=== PATIENT | male | born 1995 | race Caucasian/White ===

== ENCOUNTER 2019-11-08 15:21 | Emergency (ER) | payer BC, SELFPAY ==
[2019-11-08 15:23] VITALS: BP 149/81; PULSE 95; RESP 20; TEMP 36.7; O2SAT 98
--- NOTE | 2019-11-08 15:32 | PC.NURSE ---
Addition to triage note: Patient reports that he has bipolar disorder, ADHD, and asberger's. He reports that he is homeless, has no money, and has lost his job recently. He reports feeling very hostile towards others in general. He states It's not who I normally am, I feel like I'm going crazy. He does report that he has feelings of suicidal ideation that are not present at this time but occur more when he comes down from his manic phase. He report's that he was doing well with his bipolar until approximately a year and half ago when he reports having his medications changed around that time, and he has been off of his medication since that time. 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 Marijuana is his only reported drug usage at this time. He presents very restless at this time and is vocally very loud. He does not threaten staff members and is not acting violent towards staff member at this time. He does state that he is having visual and auditory hallucinations but is unable to articulate further about these at this time. He denies having any delusional or paranoid views but when he speaks about losing his job he tells me in a quite voice I got fired because she wanted me to have sex with her and I wouldn't so she got an order of protection against me to keep me from working. At this moment he does deny suicidal ideation, states that this is only when he is not in manic phase. He admits to violence towards others and thoughts of violence towards others if they even look at me weird . Patient informed of plan of care to clear medically and then to have crisis come to evaluate him. Patient agrees to this plan of care at this time.
[2019-11-08 16:03] LABS: Basophils Absolute Auto 0.1 K/mm3 (0.0-0.1); Basophils Percent Auto 0.5 % (0.2-1.2); Eosinophils Absolute Auto 0.2 K/mm3 (0-0.3); Eosinophils Percent Auto 2.5 % (0-4.4); Hematocrit 48.6 % (42.0-52.0); Hemoglobin 16.9 g/dL (14.0-18.0); Immature Granulocyte Absolute 0.03 K/mm3 (0.00-0.031); Immature Granulocyte Percent A 0.3 % (0-0.5); Lymphocytes Absolute Auto 2.14 K/mm3 (0.9-3.2); Lymphocytes Percent Auto 22.4 % (18.3-44.2); Mean Corpuscular HGB Conc 34.8 g/dl (32-36); Mean Corpuscular Hemoglobin 31.3 pg (26-34); Mean Platelet Volume 10.1 fl (7.4-10.4); Monocytes Absolute Auto 0.4 K/mm3 (0.1-0.6); Monocytes Percent Auto 4.3 % (2.6-8.5); Neutrophils Absolute Auto 6.7 K/mm3 (1.3-6.7); Platelet Count Result 257 k/mm3 (150-375); Red Cell Distribution Width 12.4 % (11.5-14.5); White Blood Count 9.5 K/mm3 (4.5-10.0)
[2019-11-08 16:22] LABS: Ethanol < 10 mg/dL (<10)
[2019-11-08 16:24] LABS: Alanine Aminotransferase 25 U/L (4-50); Alkaline Phosphatase 64 U/L (38-126); Anion Gap 10 mmol/L (8-16); Aspartate Amino Transferase 25 U/L (17-59); Bilirubin,Total 0.5 mg/dL (0.2-1.3); Calcium 9.9 mg/dL (8.4-10.2); Carbon Dioxide 28 mmol/L (22-30); Chloride 103 mmol/L (98-107); Glucose 116 mg/dL (75-110); Potassium 4.2 mmol/L (3.4-5.0); Sodium 141 mmol/L (137-145)
[2019-11-08 16:31] LABS: Blood Urea Nitrogen 21 mg/dL (9-20); Estimated CRCL calculation 105 ml/min; Estimated Glomerular Filt Rate > 60
--- NOTE | 2019-11-08 16:35 | ED.GENADULT ---
HPI - General Adult General Chief complaint: Psychiatric Symptoms Stated complaint: SUICIDAL AND HOMICIDAL Time Seen by Provider: 11/08/19 16:10 Source: patient History of Present Illness HPI narrative: Patient is a 24 y/o male complaining of suicidal and homicidal ideation for last 3 weeks. He states that he has bipolar disorder and he lost his job recently. He states that job loss is aggravating his symptoms. He is considering choking other people and jumping off a bridge. He is hearing voices, which tells him to choke people. Related Data Home Medications Medication Instructions Recorded Confirmed No Home Medications 11/08/19 11/08/19 Allergies Allergy/AdvReac Type Severity Reaction Status Date / Time No Known Allergies Allergy Verified 11/08/19 15:45 Review of Systems Constitutional: Constitutional: Denies chills, Denies fever(s), Denies headache(s) and Denies weakness Eyes: Eyes: Denies blurry vision ENT: Denies headache(s) and Denies neck pain Cardiovascular: Cardiovascular: Denies chest pain and Denies dyspnea Respiratory: Respiratory: Denies cough and Denies dyspnea Gastrointestinal: Gastrointestinal: Denies abdominal pain, Denies diarrhea, Denies nausea and Denies vomiting Genitourinary: Genitourinary: Denies hematuria and Denies dysuria Musculoskeletal: Musculoskeletal: Denies back pain and Denies neck pain Neurologic: Denies headache(s) and Denies weakness Psychiatric: Psychiatric: Reports visual hallucinations, Reports homicidal ideation and Reports suicidal ideation [facility] Social History Social History Gender identity (if verbalized by the patient): Male Exam Const: General: no acute distress and well developed Orientation/consciousness: oriented to person, oriented to place, oriented to time and patient oriented x3 HENMT: Head: normocephalic Ears: external ears normal General nose exam: Normal external nose present Eyes: General: appearance normal, both eyes and all related structures Conjunctivae: conjunctivae normal Neck: Neck: normal visual inspection and full ROM Chest: Chest palpation & inspection: normal inspection of the chest and no tenderness Resp: Effort & Inspection: normal respiratory effort Auscultation: clear to auscultation bilaterally Cardio: Rate: regular rate Rhythm: regular rhythm GI: GI Palp: No abdominal tenderness and Yes Soft to palpation Skin: General skin exam: normal color and turgor normal Neuro: General: oriented to person, oriented to place, oriented to time and patient oriented x3 Cognition (Neuro): normal cognition Extrem: General: normal to inspection, full ROM and no pedal edema Psych: Appearance: grossly normal Mental Status: mental status grossly normal Affect: normal affect Thought content: Yes Suicidality present, Yes Homicidality present and Yes Hallucination(s) present Course Reevaluation(s) Reevaluation #1: Patient is medically clear for psych evaluation. Date: 11/08/19 Time: 19:50 Consultations Consultation #1: Discussed with Dr. Tito Avalos (psychiatry at [facility]), who accepts patient for evaluation in ED. Date: 11/08/19 Time: 20:20 Consultation #2: Discussed with Dr. Whitman (EDP at [facility]), who agrees to accept patient for transfer. Date: 11/08/19 Time: 20:45 Vital Signs Vital signs: Vital Signs Temperature 36.7 C 11/08/19 15:23 Pulse Rate 95 11/08/19 15:23 Respiratory Rate 11/08/19 15:23 Blood Pressure 149/81 H 11/08/19 15:23 Pulse Oximetry 98 11/08/19 15:23 Temperature 36.4 C 11/08/19 23:16 Pulse Rate 81 11/08/19 23:16 Respiratory Rate 18 11/08/19 23:16 Blood Pressure 126/86 11/08/19 23:16 Pulse Oximetry 99 11/08/19 23:16 Medical Decision Making Vital Signs Vital Signs: Vital Signs Temperature 36.7 C 11/08/19 15:23 Pulse Rate 95 11/08/19 15:23 Respiratory Rate 11/08/19 15:23 Blood Pressure 149/81 H 10/24
[2019-11-08 17:16] LABS: Add Urine Microscopic? YES; Appearance Urine Clear (Clear); Bilirubin Urine Negative (Negative); Blood Urine Negative (Negative); Color Urine Yellow (Yellow); Glucose Urine UA Negative (Negative); Ketones Urine Negative (Negative); Leukocyte Esterase Ur Negative LEU/UL (Negative); Mucus Urine Moderate /lpf; Nitrate Urine Negative (Negative); Protein Urine 3+ mg/dL (Negative); RBC Urine 0-2 /hpf (0-2); Specific Grav Ur 1.029 (1.001-1.035); WBC Urine 0-3 /hpf
[2019-11-08 17:33] LABS: Amphetamine Screen Urine Negative (Negative); Barbiturate Screen Urine Negative (Negative); Benzodiazepines Screen Urine Negative (Negative); Cannabinoid Screen Urine Positive (Negative); Cocaine Screen Urine Negative (Negative); Methadone Screen Urine Negative (Negative); Opiate Screen Urine Negative (Negative); Phencyclidine Screen Urine Negative (Negative)
[2019-11-08] MEDS: NICOTINE (*PBKC) 14 MG PATCH 1 PATCH TRANSDERM (18:23)
--- NOTE | 2019-11-08 19:25 | PC.NURSE ---
report received at this time. pt resting on stretcher awake and alert. pt denies any needs/concerns. sitter remains at bedside. awaiting CRISIS
--- NOTE | 2019-11-08 20:06 | PC.NURSE ---
this RN spoke to [facility] triage nurse at this time. states they are trying to find placement for pt and they are going to discuss it with their dr. awaiting call back. pt updated on poc at this time. provided with blanket. sitter remains at bedside.
[2019-11-08 20:10] VITALS: BP 127/77; PULSE 58; RESP 18; TEMP 36.5; O2SAT 97
--- NOTE | 2019-11-08 20:53 | PC.NURSE ---
called [facility] to transport patient.. ETA [id number]
--- NOTE | 2019-11-08 21:01 | PC.NURSE ---
called [facility] to transport patient. [facility] declined.
--- NOTE | 2019-11-08 22:31 | PC.NURSE ---
called [facility] for ETA update. ETA [id number]
--- NOTE | 2019-11-08 22:33 | PC.NURSE ---
called [facility] to request transport. [facility] declined
--- NOTE | 2019-11-08 22:41 | PC.NURSE ---
called [facility] to transport patient. ETA [id number].
[2019-11-08 23:16] VITALS: BP 126/86; PULSE 81; RESP 18; TEMP 36.4; O2SAT 99
== END 2019-11-08 23:30 ==
PROVIDERS: Emergency Provider Emergency Medicine
DX: F31.9 Bipolar disorder, unspecified (principal); R45.851 Suicidal ideations
CPT/HCPCS: 36415; 80053; 80307; 81001; 84443; 85025; 99285; A9270

== ENCOUNTER 2020-05-31 10:20 | Emergency (ER) | payer BC, SELFPAY ==
--- NOTE | ~2020-05-31 | XR_ITS ---
EXAMINATION: XR chest 1V portable DATE: 05/31/2020 10:39 INDICATION: Lethargy. Drug overdose. TECHNIQUE: A single frontal view of the chest was obtained. COMPARISON: None. FINDINGS: The chest demonstrates clear lungs without pneumonia, pleural effusion, or pneumothorax. Th e heart size is normal. IMPRESSION: 1. No acute cardiopulmonary disease. Reviewed, dictated and finalized at location A.
[2020-05-31 10:20] VITALS: BP 104/62; PULSE 70; RESP 15; TEMP 36.9; O2SAT 100
--- NOTE | 2020-05-31 10:27 | ECG_ITS ---
Measurements Intervals [place] Rate: 70 P: 31 FL: 150 QRS: 81 QRSD: 98 T: -3 QT: 416 QTc: 450 Interpretive Statements SINUS RHYTHM BORDERLINE ST-T WAVE ABNORMALITY- INFERIOR LEADS BORDERLINE ECG Electronically Signed On 05-31-2020 11:45:34 CDT by Jn Patrick D.O.
[2020-05-31 10:54] LABS: Base Excess ABG -5.7 mmol/L (0-2); HCO3 ABG 19.1 mmol/L (23-29); Oxygen Content ABG 22.1 %vol (16.0-22.0); Oxygen Saturation ABG 96.9 % (95-97); Oxyhemoglobin 93.2 % (94-100); PO2 ABG 91.4 mmHg (80-90); Total Hemoglobin 16.8 g/dL; pH ABG 7.34 (7.35-7.45)
[2020-05-31 10:56] VITALS: RESP 15
[2020-05-31 10:56] LABS: Device ROOM AIR; Modified Allen's Test Pass; Site Drawn RIGHT RADIAL
[2020-05-31 11:01] LABS: Basophils Absolute Auto 0.07 K/mm3 (0.00-0.10); Basophils Percent Auto 0.9 % (0.0-1.0); Eosinophils Absolute Auto 0.27 K/mm3 (0.02-0.50); Eosinophils Percent Auto 3.4 % (1.0-6.0); Hematocrit 50.9 % (40.0-54.0); Hemoglobin 16.9 g/dL (14.0-18.0); Immature Granulocyte Absolute 0.04 K/mm3 (0.00-0.00); Immature Granulocyte Percent A 0.5 % (0.0-0.0); Lymphocytes Absolute Auto 2.28 K/mm3 (1.10-4.50); Lymphocytes Percent Auto 28.3 % (18.0-42.0); Mean Corpuscular HGB Conc 33.2 g/dL (32.0-36.0); Mean Corpuscular Hemoglobin 30.3 pg (27.0-31.0); Mean Corpuscular Volume 91.2 fL (78.0-102.0); Mean Platelet Volume 10.5 fl (8.7-11.0); Monocytes Absolute Auto 0.55 K/mm3 (0.10-0.90); Monocytes Percent Auto 6.8 % (2.0-11.0); Neutrophils Absolute Auto 4.8 K/mm3 (1.7-7.2); Neutrophils Percent Auto 60.1 % (50.0-70.0); Platelet Count Result 230 K/mm3 (150-420); Red Blood Count 5.58 M/mm3 (4.70-6.10); Red Cell Distribution Width 12.2 % (11.6-14.4); White Blood Count 8.1 K/mm3 (4.8-10.8)
[2020-05-31 11:11] LABS: INR 1.1; Partial Thromboplastin Time 24.1 SEC (23.90-30.70)
[2020-05-31 11:14] LABS: Lactic Acid Reflex 1.5 mmol/L (0.4-2.0)
[2020-05-31 11:23] LABS: Alanine Aminotransferase 37 U/L (16-63); Alkaline Phosphatase 64 U/L (46-116); Ammonia 15 umol/L (11-32); Anion Gap 8 mmol/L (8-16); Aspartate Amino Transferase 43 U/L (15-37); Carbon Dioxide 28 mmol/L (21-32); Chloride 100 mmol/L (98-108); Estimated Glomerular Filt Rate > 60; Ethanol 4 mg/dL (0-6); Phosphorus 4.1 mg/dL (2.6-4.7); Potassium 3.3 mmol/L (3.5-5.1); Sodium 136 mmol/L (136-145); Total Protein 8.6 g/dL (6.4-8.2)
[2020-05-31 11:35] LABS: Albumin Level 4.4 g/dL (3.4-5.0); Blood Urea Nitrogen 20 mg/dL (7-18); Magnesium 2.2 mg/dL (1.8-2.4); Osmolality Calculated 285 mOsm/kg (285-295); Salicylate < 0.2 mg/dL (2.8-20.0)
[2020-05-31 11:36] LABS: Calcium 9.4 mg/dL (8.5-10.1); Glucose 109 mg/dL (70-99)
[2020-05-31 11:38] LABS: Acetaminophen < 2 ug/mL (10-30)
[2020-05-31 11:43] LABS: Creatine Kinase 1599 U/L (39-308)
--- NOTE | 2020-05-31 12:57 | ED.OVERDOSE ---
HPI - Overdose General Chief Complaint: Overdose Stated Complaint: ambulance Source: patient and EMS Limitations: altered mental status History of Present Illness HPI Narrative: This is a 25-year-old gentleman that presents via EMS to emergency department after he attempted to overdose on Geodon patient with a history of schizophrenia and numerous previous attempts of suicide via overdose apparently at about 4 in the morning took no known quantity his Geodon and attempts to to commit suicide. Patient currently is alert but lethargic and immediate to having numerous suicidal attempts in the. Patient stable is vitals are stable is resting comfortably currently sleeping is on the monitor with blood 104/62 with a respiratory rate 15 and O2 sats of 100% on room air. The patient denies having any shortness of no fever chills no chest no abdominal pain no diarrhea constipation. complaint: intentional overdose Onset (ago): hour(s) Time: 04:00 Intent: suicide attempt Related Data Home Medications Medication Instructions Recorded Confirmed ziprasidone HCl 80 mg PO HS 05/31/20 05/31/20 Allergies Allergy/AdvReac Type Severity Reaction Status Date / Time No Known Allergies Allergy Verified 11/08/19 15:45 Review of Systems Review of Systems: All systems reviewed & are unremarkable except as noted in HPI and below PMFSH Past Medical History Medical History Overdose Schizophrenia Social History Social History Substance use type: marijuana and methamphetamine Gender identity (if verbalized by the patient): Male Exam Const: General: confusion HENMT: Head: normal to inspection Eyes: Other: pupils equal bilaterally but pinpoint, otherwise unable to assess extraocular eye movements. Neck: Neck: no lymphadenopathy and no meningeal signs Chest: Chest palpation & inspection: normal inspection of the chest Resp: Effort & Inspection: normal respiratory effort Auscultation: clear to auscultation bilaterally Cardio: Rate: regular rate Rhythm: regular rhythm GI: GI Palp: Yes Soft to palpation Auscultation: normal bowel sounds Urinary Catheter: Urinary Catheter: patent and draining Back/Spine/Pelvis: Back: no CVA tenderness Skin: General skin exam: normal color Rashes: no rashes Neuro: General: moves all extremities, no meningeal signs and no focal motor deficits Extrem: General: normal to inspection and no pedal edema Psych: Affect: normal affect Attitude: cooperative Thought content: Yes Suicidality present Course Course Emergency Course: Patient currently sleeping and resting comfortably did answer questions but was lethargic and reviewed his blood work and x-rays with the patient along with his EKG which showed no prolonged QT interval on EKG, abnormal was his CK was elevated at 1599, and his potassium levels were 3.3 otherwise the rest is lab profile was within normal limits did have ABGs performed which showed that he has a metabolic acidosis. Did call poison control and given the fact that this overdose with Geodon occurred around 4 in the morning which is about 6 hours prior to his arrival to our emergency room there was no indication for activated charcoal. The patient is receiving IV fluids and and he is being monitored for his vitals. Vital Signs Vital signs: Vital Signs Temperature 36.9 C 05/31/20 10:20 Pulse Rate 70 05/31/20 10:20 Respiratory Rate 15 05/31/20 10:20 Blood Pressure 104/62 05/31/20 10:20 Pulse Oximetry 100 05/31/20 10:20 Temperature 36.7 C 05/31/20 17:42 Pulse Rate 84 05/31/20 17:42 Respiratory Rate 16 05/31/20 17:42 Blood Pressure 114/70 05/31/20 17:42 Pulse Oximetry 97 05/31/20 17:42 MDM - Overdose Lab Data Result diagrams: 05/31/20 10:52 05/31/20 10:52 Labs: Lab Results 05/31/20
[2020-05-31] MEDS: SODIUM CHLORIDE 0.9% IV 1,000 ML 999 ML IV CONT (13:08)
--- NOTE | 2020-05-31 13:08 | PC.NURSE ---
1ST LITER NS INFUSED AT THIS TIME
[2020-05-31 13:30] VITALS: BP 118/66; PULSE 93; RESP 15; O2SAT 95
--- NOTE | 2020-05-31 13:32 | PC.NURSE ---
SITTER REMAINS AT BEDSIDE - PT IS CALM AND COOPERATIVE - CONTINUE TO AWAIT URINE SAMPLE - SUICIDE PRECAUTIONS CHARTED PER SITTER POLICY
--- NOTE | 2020-05-31 13:48 | PC.NURSE ---
POISON CONTROL CALLS BACK FOR RESULTS - ASKS FOR ANOTHER CK IN 6 HOURS
--- NOTE | 2020-05-31 14:47 | PC.NURSE ---
PT BACK IN ROOM AFTER PROVIDING URINE SAMPLE - PT STATES HE IS NOT SUICIDAL AND DOESN'T THINK HE NEEDS TO GO TO THE MENTAL HOS[facility] - PT REMAINS CALM - WILL CALL [facility] FOR FOLLOW UP
[2020-05-31 14:56] LABS: Add Urine Microscopic? NO; Appearance Urine Clear (Clear); Bilirubin Urine Negative (Negative); Blood Urine Negative (Negative); Color Urine Yellow (Yellow); Glucose Urine UA Negative (Negative); Ketones Urine Negative (Negative); Leukocyte Esterase Ur Negative LEU/UL (Negative); Nitrate Urine Negative (Negative); Protein Urine Negative (Negative); Specific Grav Ur <= 1.005 (1.010-1.020); Urobilinogen Urine 0.2 mg/dL (0.2-1.0); pH Urine 5.5 (5.0-8.0)
[2020-05-31 14:58] LABS: Amphetamine Screen Urine Positive (Negative); Barbiturate Screen Urine Negative (Negative); Benzodiazepines Screen Urine Negative (Negative); Cannabinoid Screen Urine Positive (Negative); Cocaine Screen Urine Negative (Negative); Methadone Screen Urine Negative (Negative); Opiate Screen Urine Negative (Negative); Phencyclidine Screen Urine Negative (Negative)
--- NOTE | 2020-05-31 15:01 | PC.NURSE ---
PT BACK TO SLEEP, S - [facility] OVEN ROASTER ENROUTE TO INTERVIEW PATIENT
[2020-05-31 15:04] VITALS: BP 109/80; PULSE 77; RESP 14; O2SAT 99
[2020-05-31 15:39] LABS: Creatine Kinase 1587 U/L (39-308)
--- NOTE | 2020-05-31 15:52 | PC.NURSE ---
[facility] COMMERCIAL COLLECTIONS SPECIALIST WITH PATIENT
--- NOTE | 2020-05-31 16:55 | PC.NURSE ---
[facility] HAS DEEMED PATIENT NOT SUICIDAL. PER ERP, PT STILL NEEDS TO BE TRANSFERRED TO PSYCH FACILITY D/T PREVIOUS IDEATION. PT IS ADAMANT THAT HE DID NOT EVEN TAKE THE PILLS THAT HE DESCRIBED EARLIER - STATES THAT RX WAS FILLED IN FEBRUARY AND HAS NOT BEEN ON MEDICATION SINCE - PT REMAINS CALM AND COOPERATIVE AND STATES HE WILL STAY TO BE TRANSFERRED REQUESTED BY ERP - PT SIGNS VOLUNTARY ADMISSION
[2020-05-31 17:03] VITALS: BP 138/67; PULSE 103; O2SAT 97
[2020-05-31 17:08] LABS: Creatine Kinase 1278 U/L (39-308)
[2020-05-31 17:42] VITALS: BP 114/70; PULSE 84; RESP 16; TEMP 36.7; O2SAT 97
--- NOTE | 2020-05-31 17:45 | PC.NURSE ---
here @ 1730 to 203b for er hold. patient is alert to x'4 but drowsy at this time. voices no c/o. at times speech is clear and other times it is slurred. denies thoughts to harm self, just claims he wants to sleep.
--- NOTE | 2020-05-31 17:55 | PC.NURSE ---
CHART FAXED TO [facility] [phone]
--- NOTE | 2020-05-31 19:23 | PC.NURSE ---
Poison control called for update on patient. Patient resting, VS stable. Pain rated at 0 on 0to 10.
--- NOTE | 2020-05-31 19:29 | PC.NURSE ---
Pt remains in a hold bed on the 3rd floor, awaiting placement at [facility] facility.
--- NOTE | 2020-05-31 20:43 | PC.NURSE ---
Spoke with Shefali at [facility]. Background information provided on patient. Requires negative rapid COVID test before admission. Order obtained , specimen collected and delivered to lab. [facility] was also contacting [facility] to obtain information. Patient resting in room. Cooperative with care.
[2020-05-31 21:06] LABS: SARS-CoV-2 Ag Negative (Negative)
--- NOTE | 2020-05-31 21:22 | PC.NURSE ---
Contacted by Shefali at [facility]. Requested another CK level be drawn. notified. Patient resting.
--- NOTE | 2020-05-31 21:50 | PC.NURSE ---
The voluntary admission form had been misplaced. A new [facility] Application for Voluntary Admission was filled out and signed by patient, myself, and Nisha ACE. Patient is calm and cooperative while on the floor. [facility] has tentatively accepted patient pending normalization of his CK
[2020-05-31 21:53] LABS: Creatine Kinase 964 U/L (39-308)
[2020-06-01 00:02] VITALS: BP 125/69; PULSE 56; RESP 14; TEMP 36.9; O2SAT 97
--- NOTE | 2020-06-01 06:59 | P.PNCROSS_ITS ---
Event Note Event Note Event Note: patient has been stable throughout the night with some no current complaints, my [facility] has accepted the patient for inpatient psychiatric evaluation on the premise that his CK levels are in normal range, and awaiting for this morning's CK results.
[2020-06-01 07:03] LABS: Creatine Kinase 768 U/L (39-308)
[2020-06-01 07:34] VITALS: BP 152/75; PULSE 96; RESP 18; TEMP 37.4
--- NOTE | 2020-06-01 08:16 | PC.NURSE ---
Pt lying in bed with side rails up x 2. A/O x 3, call light in reach. Refuses breakfast at this time. RN offered to get pt something else but he refused.
--- NOTE | 2020-06-01 09:38 | PC.NURSE ---
Pt up in room. Denies any intention to harm self or others. Asked for and was given paper and pencil.
--- NOTE | 2020-06-01 10:21 | PC.NURSE ---
Pt complaint of tongue swelling and mouth pain. Pt becoming anxious and agitated. RN assured him that Dr. Granger will be here to see him. RN brought pt a soda which he asked for. Dr. Granger from ER is on the floor doing rounds and will see pt.
[2020-06-01] MEDS: predniSONE 20 MG TABLET 40 MG PO (12:04)
[2020-06-01] MEDS: diphenhydrAMINE HCl CAP 25 MG CAPSULE PO (12:04)
[2020-06-01 12:22] LABS: Anion Gap 9 mmol/L (8-16); Blood Urea Nitrogen 20 mg/dL (7-18); Calcium 9.1 mg/dL (8.5-10.1); Carbon Dioxide 26 mmol/L (21-32); Chloride 102 mmol/L (98-108); Estimated Glomerular Filt Rate > 60; Glucose 114 mg/dL (70-99); Osmolality Calculated 287 mOsm/kg (285-295); Potassium 3.7 mmol/L (3.5-5.1); Sodium 137 mmol/L (136-145)
[2020-06-01 12:25] LABS: Creatine Kinase 768 U/L (39-308)
--- NOTE | 2020-06-01 12:43 | PC.NURSE ---
Pt ate 100% of lunch. Pt has had 2 sodas and 500ml of water. Urinating without difficulty, denies pain. Continues to complain of swollen tongue and facial pain. Pt took prednisone and Benadryl at 1130am. Top side rails up call light in reach.
[2020-06-01] MEDS: SODIUM CHLORIDE 0.9% IV 1,000 ML 200 ML IV CONT ×3 (13:49→23:21)
[2020-06-01 16:07] VITALS: BP 124/78; PULSE 76; RESP 18; TEMP 37.1; O2SAT 97
--- NOTE | 2020-06-01 16:10 | PC.NURSE ---
sitting up in bed. up ad urvashi in room. denies any suicidal thoughts. gait is steady. denies any sob. talks plainly and in full sentences. denies any tongue swelling, trouble swallowing, or sob. ivf cont. aniket stuart
--- NOTE | 2020-06-01 18:22 | PC.NURSE ---
talks on phone. voices no c/o of tongue swelling. talks without difficulty. ivf cont.
[2020-06-01 18:43] LABS: Anion Gap 10 mmol/L (8-16); Blood Urea Nitrogen 17 mg/dL (7-18); Carbon Dioxide 27 mmol/L (21-32); Chloride 102 mmol/L (98-108); Creatine Kinase 716 U/L (39-308); Estimated Glomerular Filt Rate > 60; Glucose 160 mg/dL (70-99); Osmolality Calculated 292 mOsm/kg (285-295); Potassium 4.2 mmol/L (3.5-5.1); Sodium 139 mmol/L (136-145)
[2020-06-02] MEDS: SODIUM CHLORIDE 0.9% IV 1,000 ML 200 ML IV CONT ×4 (04:25→21:36)
--- NOTE | 2020-06-02 05:13 | PC.NURSE ---
Patient alert and oriented x 3, no c/o pain or discomfort, bp- 1236/67, p - 78, R - 20, T - 98.4, SPO2 - 92, IV fluids per orders.
[2020-06-02 06:05] LABS: Alanine Aminotransferase 34 U/L (16-63); Albumin Level 3.5 g/dL (3.4-5.0); Alkaline Phosphatase 55 U/L (46-116); Anion Gap 10 mmol/L (8-16); Aspartate Amino Transferase 25 U/L (15-37); Bilirubin,Total 0.4 mg/dL (0.00-1.00); Blood Urea Nitrogen 16 mg/dL (7-18); Calcium 8.7 mg/dL (8.5-10.1); Carbon Dioxide 24 mmol/L (21-32); Chloride 105 mmol/L (98-108); Creatine Kinase 449 U/L (39-308); Estimated Glomerular Filt Rate > 60; Glucose 99 mg/dL (70-99); Osmolality Calculated 289 mOsm/kg (285-295); Potassium 3.5 mmol/L (3.5-5.1); Sodium 139 mmol/L (136-145); Total Protein 7.3 g/dL (6.4-8.2)
[2020-06-02 07:30] VITALS: BP 133/82; PULSE 86; RESP 18; TEMP 37.2; O2SAT 96
--- NOTE | 2020-06-02 08:00 | PC.NURSE ---
Patient stated to nurse You know I am in here cause I took alot of medication right? I took it cause I wanted to . Patient denies any plan at present.
[2020-06-02 14:57] LABS: Creatine Kinase 397 U/L (39-308)
--- NOTE | 2020-06-02 16:05 | PC.NURSE ---
[facility] contacted about admission for patient, reports that all their beds are full at this time.
--- NOTE | 2020-06-02 16:20 | PC.NURSE ---
MD Richter notified that [facility] does not have a bed availiable at this time. [facility] after hours contacted about placement for patient, waiting for call back from [facility] worker.
[2020-06-02] MEDS: NICOTINE (*PBKC) 21 MG PATCH 1 PATCH TRANSDERM (16:43)
[2020-06-02 16:45] VITALS: BP 132/93; PULSE 77; RESP 18; TEMP 37.3; O2SAT 95
--- NOTE | 2020-06-02 17:45 | PC.NURSE ---
Patient information and chart faxed to [facility] in [place], [place].
--- NOTE | 2020-06-02 19:55 | PC.NURSE ---
Chart, labs, facesheet and doctor notes faxed to [facility], .
--- NOTE | 2020-06-02 20:35 | PC.NURSE ---
Patient watching tv. IVF infusing to site in RFA without difficulty.Denies pain/complaints/needs @ this time. Patient denies having suicidal thoughts @ this time. Patient watching [employer] on his phone. Call light in reach.
--- NOTE | 2020-06-02 21:00 | PC.NURSE ---
Received call from Howard @ [facility] saying [facility] in [place] wants labs and EKG repeated before they would take patient. Dr Richter notified and will order the requested tests.
--- NOTE | 2020-06-02 21:16 | ECG_ITS ---
Measurements Intervals [place] Rate: 60 P: 21 [place]: 162 QRS: 29 QRSD: 104 T: 24 QT: 384 QTc: 385 Interpretive Statements SINUS RHYTHM WITH SINUS ARRHYTHMIA EARLY PRECORDIAL R/S TRANSITION BORDERLINE ECG Electronically Signed On 06-03-2020 8:05:55 CDT by Jn Patrick D.O.
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
[2020-06-02 21:41] LABS: Basophils Absolute Auto 0.06 K/mm3 (0.00-0.10); Basophils Percent Auto 0.9 % (0.0-1.0); Eosinophils Absolute Auto 0.21 K/mm3 (0.02-0.50); Eosinophils Percent Auto 3.2 % (1.0-6.0); Hematocrit 41.8 % (40.0-54.0); Immature Granulocyte Absolute 0.01 K/mm3 (0.00-0.00); Immature Granulocyte Percent A 0.2 % (0.0-0.0); Lymphocytes Absolute Auto 3.02 K/mm3 (1.10-4.50); Lymphocytes Percent Auto 45.8 % (18.0-42.0); Mean Corpuscular HGB Conc 33.5 g/dL (32.0-36.0); Mean Corpuscular Hemoglobin 30.4 pg (27.0-31.0); Mean Corpuscular Volume 90.9 fL (78.0-102.0); Mean Platelet Volume 10.7 fl (8.7-11.0); Monocytes Percent Auto 7.6 % (2.0-11.0); Neutrophils Absolute Auto 2.8 K/mm3 (1.7-7.2); Neutrophils Percent Auto 42.3 % (50.0-70.0); Platelet Count Result 210 K/mm3 (150-420); Red Cell Distribution Width 11.9 % (11.6-14.4); White Blood Count 6.6 K/mm3 (4.8-10.8)
--- NOTE | 2020-06-02 22:00 | PC.NURSE ---
Urine specimen obtained.
[2020-06-02 22:03] LABS: Alanine Aminotransferase 41 U/L (16-63); Albumin Level 3.5 g/dL (3.4-5.0); Alkaline Phosphatase 61 U/L (46-116); Anion Gap 8 mmol/L (8-16); Aspartate Amino Transferase 24 U/L (15-37); Bilirubin,Total 0.3 mg/dL (0.00-1.00); Blood Urea Nitrogen 13 mg/dL (7-18); Calcium 8.6 mg/dL (8.5-10.1); Carbon Dioxide 27 mmol/L (21-32); Chloride 103 mmol/L (98-108); Estimated Glomerular Filt Rate > 60; Glucose 111 mg/dL (70-99); Osmolality Calculated 287 mOsm/kg (285-295); Potassium 3.5 mmol/L (3.5-5.1); Sodium 138 mmol/L (136-145); Thyroid Stimulating Hormone 1.65 uIU/mL (0.36-3.74); Total Protein 7.2 g/dL (6.4-8.2)
[2020-06-02 23:20] LABS: Amphetamine Screen Urine Negative (Negative); Barbiturate Screen Urine Negative (Negative); Benzodiazepines Screen Urine Negative (Negative); Cannabinoid Screen Urine Positive (Negative); Cocaine Screen Urine Negative (Negative); Methadone Screen Urine Negative (Negative); Opiate Screen Urine Negative (Negative); Phencyclidine Screen Urine Negative (Negative)
[2020-06-02 23:23] LABS: Add Urine Microscopic? NO; Appearance Urine Clear (Clear); Bilirubin Urine Negative (Negative); Blood Urine Negative (Negative); Color Urine Yellow (Yellow); Glucose Urine UA Negative (Negative); Ketones Urine Negative (Negative); Leukocyte Esterase Ur Negative (Negative); Nitrate Urine Negative (Negative); Protein Urine Negative (Negative); Urobilinogen Urine 0.2 mg/dL (0.2-1.0)
--- NOTE | 2020-06-02 23:30 | PC.NURSE ---
Patient awakened easily for VS to be taken. IVF infusing to site in RFA without difficulty. Denies pain/complaints/needs or suicidal thoughts @ this time. No distress noted. Call light in reach.
[2020-06-02 23:43] LABS: SARS-CoV-2 Ag Negative (Negative)
[2020-06-03] VITALS: BP 144/79; PULSE 62; RESP 18; TEMP 36.8; O2SAT 95
--- NOTE | 2020-06-03 01:15 | PC.NURSE ---
Patient appears to be sleeping by the rise and fall of his chest. IVF infusing without difficulty to site in RFA. No distress noted. Call light in reach.
[2020-06-03] MEDS: SODIUM CHLORIDE 0.9% IV 1,000 ML 200 ML IV CONT (02:34)
--- NOTE | 2020-06-03 02:45 | PC.NURSE ---
Patient appears to be sleeping by the rise and fall of his chest. IVF infusing to site in RFA without difficulty. No distress noted. Call light in reach.
--- NOTE | 2020-06-03 07:12 | ED.PSYCH ---
HPI - Psych General Source: patient and EMS Mode of arrival: ambulatory Limitations: no limitations History of Present Illness HPI Narrative: Patient continues to wait for bed placement in locked unit, due to history of suicide attempt. complaint: suicidal ideation Associated psychiatric symptoms: depression Related Data Home Medications Medication Instructions Recorded Confirmed ziprasidone HCl 80 mg PO HS 05/31/20 05/31/20 Allergies Allergy/AdvReac Type Severity Reaction Status Date / Time No Known Allergies Allergy Verified 11/08/19 15:45 Review of Systems Constitutional: Constitutional: Reports no additional constitutional complaints Eyes: Eyes: Reports no additional eye complaints ENT: Reports system reviewed and no additional complaints, except as documented Cardiovascular: Cardiovascular: Reports no additional cardiovascular complaints Respiratory: Respiratory: Reports no additional respiratory complaints Gastrointestinal: Gastrointestinal: Reports no additional gastrointestinal complaints Genitourinary: Genitourinary: Reports no additional male genitourinary complaints Musculoskeletal: Musculoskeletal: Reports no additional musculoskeletal complaints Integumentary/Breasts: Skin/Breast: Reports system reviewed and no additional complaints, except as docu Neurologic: Reports system reviewed and no additional complaints, except as documented Psychiatric: Psychiatric: Reports no additional psychiatric complaints Endocrine: Endocrine: Reports no additional endocrine complaints Hematologic/Lymphatic: Hematologic/Lymphatic: Reports no additional hematologic/lymphatic complaints PMFSH Past Medical History Medical History Overdose Schizophrenia Family History Family History Mother Family history non-contributory Social History Social History Substance use type: marijuana and methamphetamine Gender identity (if verbalized by the patient): Male Exam Narrative: Exam Narrative: He freely admits to suicide attempt. He states he is feeling better this am, and swelling of his tongue has resolved. Const: General: alert Orientation/consciousness: patient oriented x3 HENMT: Head: normal to inspection Other: mouth and tongue appear within normal limits Eyes: Conjunctivae: conjunctivae normal Neck: Neck: normal visual inspection Chest: Chest palpation & inspection: normal inspection of the chest Resp: Effort & Inspection: normal respiratory effort Cardio: Rate: regular rate GI: Other: negative Skin: General skin exam: normal color Neuro: General: patient oriented x3 Extrem: General: normal to inspection Psych: Appearance: disheveled Attitude: cooperative Thought content: Yes Suicidality present and Yes Depersonalization present Course Course Emergency Course: Hospital course is unchanged. We continue to wait for bed placement. Vital Signs Vital signs: Vital Signs Temperature 36.9 C 05/31/20 10:20 Pulse Rate 70 05/31/20 10:20 Respiratory Rate 15 05/31/20 10:20 Blood Pressure 104/62 05/31/20 10:20 Pulse Oximetry 100 05/31/20 10:20 Temperature 36.8 C 06/03/20 00:00 Pulse Rate 62 06/03/20 00:00 Respiratory Rate 18 06/03/20 00:00 Blood Pressure 144/79 H 06/03/20 00:00 Pulse Oximetry 95 06/03/20 00:00 MDM - Psych MDM Narrative Medical decision making narrative: Hospital course is unchanged we continue to wait for bed for transfer. Lab Data Result diagrams: 06/02/20 21:30 06/02/20 21:30 Labs: Lab Results 05/31/20 05/31/20 05/31/20 Range/Units 10:52 10:52 10:52 WBC 8.1 (4.8-10.8) K/mm3 RBC 5.58 (4.70-6.10) M/mm3 Hgb 16.9 (14.0-18.0) g/dL Hct 50.9 (40.0-54.0) % MCV 91.2 (78.0-102.0) fL MCH 30.3 (27.0-31.0)
[2020-06-03 07:40] VITALS: BP 139/87; PULSE 54; RESP 18; TEMP 36.9; O2SAT 97
[2020-06-03 16:15] VITALS: BP 130/84; PULSE 72; RESP 18; TEMP 36.6; O2SAT 97
--- NOTE | 2020-06-03 18:25 | PC.NURSE ---
Dr. Granger in room to speak with patient. Patient requesting to be let go. [facility] contacted about doing a re-evaluation per MD suggestion since it has been 72 hours. [facility] contacted, [facility] worker will be here in morning around 9 am to do re-eval.
--- NOTE | 2020-06-03 19:30 | PC.NURSE ---
Patient watching tv. Denies pain/complaints/needs or suicidal thoughts @ this time. No distress noted. Call light in reach.
--- NOTE | 2020-06-03 21:25 | PC.NURSE ---
Patient requested/given some cereal to eat. Denies pain/complaints/needs or suicidal thoughts @ this time. No distress noted. Call light in reach.
--- NOTE | 2020-06-03 23:05 | PC.NURSE ---
Patient watching tv. Denies pain/complaints/needs or suicidal thoughts @ this time. No distress noted. Call light in reach.
[2020-06-04] VITALS: BP 101/54; PULSE 60; RESP 18; TEMP 36.3; O2SAT 95
--- NOTE | 2020-06-04 | PC.NURSE ---
Patient awakened easily for VS. Denies pain/complaints/needs or suicidal thoughts @ this time. No distress noted. Call light in reach.
--- NOTE | 2020-06-04 01:30 | PC.NURSE ---
Patient appears to be sleeping by the rise and fall of his chest. No distress noted. Call light in reach.
--- NOTE | 2020-06-04 01:30 | PC.NURSE ---
Denies pain/complaints/needs or suicidal thoughts @ this time. No distress noted. Call light in reach.
--- NOTE | 2020-06-04 02:50 | PC.NURSE ---
Patient appears to be sleeping by the rise and fall of his chest. No distress noted. Call light in reach.
--- NOTE | 2020-06-04 03:50 | PC.NURSE ---
Patient appears to be sleeping by the rise and fall of his chest. No distress noted. Call light in reach.
[2020-06-04 07:58] VITALS: BP 117/68; PULSE 74; RESP 18; TEMP 37.2; O2SAT 98
--- NOTE | 2020-06-04 08:00 | PC.NURSE ---
Pt lying in bed A/O x 3. No complaints. Pt states that [facility] is supposed to see him today so he can go home. Pt denies any intention to harm himself or anyone else. Pt states that he will seek help for his depression.
--- NOTE | 2020-06-04 09:30 | PC.NURSE ---
Pt up in room. ambulation steady with no assist. pt asking when [address] will get here. Rn explained that sometimes they are late. Pt is pleasant this AM. He ate all of the Breakfast he ordered. Call light in reach.
--- NOTE | 2020-06-04 10:39 | PC.NURSE ---
Dr Richter notified of patient wanting to leave against medical advice, states is no longer wanting to hurt himself and has no desire to hurt anyone else, just wants to go home. Awaiting orders
--- NOTE | 2020-06-04 10:52 | ED.OVERDOSE ---
HPI - Overdose General Chief Complaint: Overdose Stated Complaint: ambulance Time Seen by Provider: 06/02/20 10:16 Source: patient and EMS Mode of arrival: ambulatory Limitations: no limitations History of Present Illness HPI Narrative: Patient has been here for some days. He had initially had suicidal thoughts. He denies having suicidal thoughts for the last three days now. complaint: intentional overdose Related Data Home Medications Medication Instructions Recorded Confirmed ziprasidone HCl 80 mg PO HS 05/31/20 05/31/20 Allergies Allergy/AdvReac Type Severity Reaction Status Date / Time No Known Allergies Allergy Verified 11/08/19 15:45 Review of Systems Constitutional: Constitutional: Reports no additional constitutional complaints Eyes: Eyes: Reports no additional eye complaints ENT: Reports system reviewed and no additional complaints, except as documented Cardiovascular: Cardiovascular: Reports no additional cardiovascular complaints Respiratory: Respiratory: Reports no additional respiratory complaints Gastrointestinal: Gastrointestinal: Reports no additional gastrointestinal complaints Genitourinary: Genitourinary: Reports no additional male genitourinary complaints Musculoskeletal: Musculoskeletal: Reports no additional musculoskeletal complaints Integumentary/Breasts: Skin/Breast: Reports system reviewed and no additional complaints, except as docu Neurologic: Reports system reviewed and no additional complaints, except as documented Psychiatric: Psychiatric: Reports no additional psychiatric complaints Endocrine: Endocrine: Reports no additional endocrine complaints Hematologic/Lymphatic: Hematologic/Lymphatic: Reports no additional hematologic/lymphatic complaints Allergic/Immunologic: Allergic/Immunologic: Reports no additional allergic/immunologic complaints PMFSH Past Medical History Medical History Overdose Schizophrenia Family History Family History Mother Family history non-contributory Social History Social History Substance use type: marijuana and methamphetamine Gender identity (if verbalized by the patient): Male Exam Const: General: no acute distress HENMT: Head: normal to inspection Ears: external ears normal General nose exam: Normal external nose present Eyes: Conjunctivae: conjunctivae normal Neck: Neck: normal visual inspection Chest: Chest palpation & inspection: normal inspection of the chest Resp: Effort & Inspection: normal respiratory effort Auscultation: clear to auscultation bilaterally Cardio: Rate: regular rate Rhythm: regular rhythm GI: GI Palp: Yes Soft to palpation (nontender) Skin: General skin exam: normal color Neuro: General: patient oriented x3 and moves all extremities Extrem: General: normal to inspection Psych: Appearance: grossly normal Mental Status: mental status grossly normal Thought content: Yes Normal thought content present Course Course Emergency Course: Patient was evaluated by the psychiatric health counselor. Both Dinorah and Dr Granger believe this young man is no longer a risk to himself. He states he will follow up with the mental health counselor as soon as possible. He has court ordered mental health counseling. He denies thought of self harm, as he has for the last three days. Vital Signs Vital signs: Vital Signs Temperature 36.9 C 05/31/20 10:20 Pulse Rate 70 05/31/20 10:20 Respiratory Rate 15 05/31/20 10:20 Blood Pressure 104/62 05/31/20 10:20 Pulse Oximetry 100 05/31/20 10:20 Temperature 37.2 C 06/04/20 14:05 Pulse Rate 76 06/04/20 14:05 Respiratory Rate 18 06/04/20 14:05 Blood Pressure 117/68 06/04/20 14:05 Pulse Oximetry 98 06/04/20 14:05 MDM - Overdose MDM Narrative Medical decision m
--- NOTE | 2020-06-04 10:55 | PC.NURSE ---
Pt has been up to the shower and changed to street cloths. Pt is stating that he has no thoughts of harming himself or anyone else and would like to leave the hospital. He has been cooperative this morning.
[2020-06-04 14:05] VITALS: BP 117/68; PULSE 76; RESP 18; TEMP 37.2; O2SAT 98
== END 2020-06-04 14:08 | disposition home or self-care (01) ==
LOC: CHSED 16:02 → CHS2ND 17:07
PROVIDERS: Emergency Medicine; Emergency Provider Emergency Medicine
DX: T50.902A Poisoning by unspecified drugs, medicaments and biological substances, intentional self-harm, initial encounter (principal); F20.9 Schizophrenia, unspecified; Z20.822 Contact with and (suspected) exposure to COVID-19
CPT/HCPCS: 36415; 36600; 71045; 80048; 80053; 80307; 81003; 82140; 82550; 82805; 83605; 83735; 84100; 84443; 85025; 85610; 85730; 87426; 93005; 96360; 99284; A9270; C9803; J7030; J7512